=== PATIENT | male | born 1990 | race African-American/Black ===

== ENCOUNTER 2017-02-26 14:41 | Emergency (ER) | payer OTHER, BC, MEDICAID ==
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
== END 2017-02-26 16:20 | disposition home or self-care (01) ==
LOC: KA.ED 14:41
CPT/HCPCS: 99283